=== PATIENT | female | born 1940 | race Caucasian/White ===

== ENCOUNTER 2016-07-11 13:19 | Emergency (ER) | payer MEDICARE, OTHER ==
[2016-07-11 12:49] LABS: BASOPHILS 0.4 %; BASOPHILS ABSOLUTE 0.03 10/3/uL (0.0-0.16); EOSINOPHILS 7.3 %; EOSINOPHILS ABSOLUTE 0.59 10/3/uL (0.0-0.53); ER CBC TAT 0 Hrs 05 Mins; IMMATURE GRANULOCYTES 0.1 %; IMMATURE GRANULOCYTES ABSOLUTE 0.01 10/3/uL (0.0-0.11); LYMPHOCYTES 19.7 %; LYMPHOCYTES ABSOLUTE 1.58 10/3/uL (0.67-4.30); MEAN CORPUS HGB CONC 32.3 g/dL (32.0-36.0); MEAN CORPUSCULAR HEMOGLOB 29.7 pg (26.0-34.0); MEAN CORPUSCULAR VOLUME 91.9 fL (80-100); MEAN PLATELET VOLUME 10.6 fL (9.2-13.0); MONOCYTES 8.3 %; MONOCYTES ABSOLUTE 0.67 10/3/uL (0.21-1.20); NEUTROPHILS 64.2 %; NEUTROPHILS ABSOLUTE 5.15 10/3/uL (2.02-8.40); RBC DISTRIBUTION WIDTH 15.3 % (12.0-16.0)
[2016-07-11 12:50] LABS: HEMATOCRIT 36.2 % (36.0-48.0); HEMOGLOBIN 11.7 g/dL (12.0-16.0); PLATELET COUNT 155 10/3/uL (150-400); RED CELL COUNT 3.94 10/6/uL (4.0-5.6)
[2016-07-11 12:51] LABS: MANUAL DIFF NO %
[2016-07-11 13:06] LABS: A/G RATIO 0.8 (0.7-1.9); BUN (BLOOD UREA NITROGEN) 48 MG/DL (6-23); CALCIUM, SERUM 9.1 MG/DL (8.5-10.4); CHLORIDE, SERUM 104 MMOL/L (96-112); CO2 (CARBON DIOXIDE) 27 MMOL/L (24-34); GLOBULIN 3.7 G/DL (2.5-4.1); POTASSIUM, SERUM 4.4 MMOL/L (3.5-5.3); SGOT(AST) 12 U/L (5-40); SGPT(ALT) 16 U/L (5-65); SODIUM, SERUM 141 MMOL/L (135-148); TOTAL BILIRUBIN 0.4 MG/DL (0-1.2); TOTAL PROTEIN 6.7 G/DL (6.0-8.5)
[2016-07-11 13:07] LABS: ALKALINE PHOSPHATASE 64 U/L (45-117); CREATININE 7.76 MG/DL (0.55-1.02); GFR AFRICAN AMERICAN 5 ML/MIN (>=60); GFR NON AFRICAN AMERICAN 5 ML/MIN (>=60); GLUCOSE, SERUM 111 MG/DL (60-99)
[~2016-07-11 13:19] MED LIST: ACET500CAP PO; ALAVERT10 MG PO; ALLERGY SHOT SQ; APRES50 PO; ARANESP; ARANESP SC; ARANESP25 IV; ASAB PO; ASABAYER PO; BUM2 PO; BUSPAR5 PO; CLARIT10 PO; COREG12 PO; COREG6 PO; DIOVAN HC2; DIOVAN HCT160 MG/25 PO; DIOVAN HCT320 MG/25 PO; DIURETIC PO; FERROUS SULF325 M1 PO; FISH-EPA1000 MG PO; GAS-X80 MG PO; HYZAAR 100/25 T1 TAB PO; IRON COMPLEX150 MG OR; IRON325 MG PO; LEVOTHROID50 MCG PO; LEVOTHYROXIN50 MCG PO; LIPITOR40 PO; MIRALAXPKT PO; NITROSTAT0.4 MG SL; NORV25 PO; NORV5 PO; PCET PO; PROCRIT IV; PROCRIT40 IV; SYSTANE OP; SYSTANE OPH; TUMSROLL PO; UNABLE TO RECALL; VENTOLIN HFA INH; VITAMIN D1000 UNI1 PO; VITAMIN D2000 UNIT PO; VITAMIN D31000 UNIT PO; ZANTAC 150 PO; ZANTAC 75 PO; ZOCOR20 PO; ZOCOR80 MG PO; ZOFRAN4 PO
[2016-07-11 13:53] LABS: TROPONIN I <0.02 NG/ML (<0.05)
[2016-11-11] MEDS ORDERED: CLARIT10 PO (08:35)
[2016-11-11] MEDS ORDERED: ARANESP25 SC (08:35)
[2016-11-11] MEDS ORDERED: COZ50 PO (08:36)
[2016-11-11] MEDS ORDERED: BUM2 PO (14:18)
[2016-11-13] MEDS ORDERED: ZOFRAN ODT4 MG PO ×2 (13:45)
== END 2016-07-11 14:42 | disposition home or self-care (01) ==
LOC: ER 13:19
PROVIDERS: Physician Assistant
DX: J90 Pleural effusion, not elsewhere classified (principal); I25.2 Old myocardial infarction; I12.9 Hypertensive chronic kidney disease with stage 1 through stage 4 chronic kidney disease, or unspecified chronic kidney disease; N18.9 Chronic kidney disease, unspecified; D64.9 Anemia, unspecified; Z88.5 Allergy status to narcotic agent; Z88.8 Allergy status to other drugs, medicaments and biological substances; Z79.82 Long term (current) use of aspirin; Z79.899 Other long term (current) drug therapy
CPT/HCPCS: 71010; 80053; 83880; 84484; 85025; 87040; 93005; 99285

== ENCOUNTER 2016-07-22 08:06 | Observation (INO) | payer MEDICARE, OTHER ==
--- NOTE | ~2016-07-22 | CN ---
Consultation Report [facility] [address] [place]. [address] NAME: CUCA COPE : 39 STATUS : ADM Andrew PAT#: [id number] AGE: 75 ADM/REG DATE : 07/22/16 MR#: [id number] REPORT SERV DATE: 07/23/16 DICTATED BY: TRAVIS MENDEZ DATE: 07/23/16 REPORT STATUS : Draft TRANSCRIBED BY: MODL DATE: 07/23/16 CONSULTATION NOTE DATE OF CONSULTATION: 07/23/2016 CHIEF COMPLAINT: Shortness of breath in a patient with bilateral pleural effusions. HISTORY OF PRESENT ILLNESS: Mrs. Cuca Cope is a very pleasant 75-year-old white female with a past medical history significant for end-stage renal disease, currently on peritoneal dialysis, hypertension, and congestive heart failure, who presents to [facility]'s Emergency Room with complaints of worsening shortness of breath of two or three days duration. Please note that, Ms. Cope was hospitalized as recently as 03/2016 when she was seen for similar complaints. Mrs. Cope is not currently followed by a global category manager. She is not usually require supplemental oxygen. She is on no nebulized medications. She described herself as a never smoker. She describes her exercise tolerance prior to this recent illness as being fairly good, being able to ambulate 50 to 100 yards before experiencing some degree of shortness of breath. She largely denies symptomatology related to obstructive sleep apnea. Mrs. Cope was hospitalized as recently as 03/2016 when she had complaints of worsening shortness of breath. She was seen by Nephrology and Cardiology for these concerns. She did eventually undergo imaging, which demonstrated bilateral pleural effusions. At this time, the left effusion was larger in comparison to the right. A pulmonary nodule in the right side was noted as well. She did eventually undergo a left-sided thoracentesis, which produced 600 mL of fluid. Unfortunately, this was not sent off for diagnostic studies. The patient did eventually improve and continued to do peritoneal dialysis at home. More recently, she began to experience worsening shortness of breath and a dry nonproductive cough and as such was eventually brought to the emergency room at [facility] for further assessment. Upon arrival, she was found to be hypertensive with a systolic blood pressure of 175. Her oxygenation was 93% on room air. Initial blood work revealed a white blood cell count of 9200. Her BNP was elevated at 1840. She did receive diuretics and breathing treatments. She did eventually undergo a CT of the chest, which demonstrated again bilateral pleural effusions, this time with the right greater than left. There is an interval increase of the right middle lobe nodule previously measuring 4.7 mm, now measuring 6 x 9 mm. For the aforementioned reasons, she has been referred to the Pulmonary Service for further assessment. Currently, the patient is on room air with oxygen saturation of 96%. She states that her breathing has improved dramatically. She denies any shortness of breath at rest. She does have a dry, nonproductive cough. She denies any wheezing. She denies any recent chills or fever. She denies a history of childhood asthma. She denies any formal diagnosis of Consultation Report [address] [address] NAME: CUCA COPE : 39 STATUS : ADM Andrew PAT#: [id number] AGE: 75 ADM/REG DATE : 07/22/16 MR#: [id number] REPORT SERV DATE: 07/23/16 DICTATED BY: TRAVIS MENDEZ DATE: 07/23/16 REPORT STATUS : Draft TRANSCRIBED BY: REECE DATE: 07/23/16 chronic bronchitis or emphysema. The patient does have known significant cardiac disease including coronary artery disease, congestive heart failure, hypertension, and dyslipidemia. She currently denies any murmurs, angina, or palpitations. She denies any lower extremity edema. In regard to constitutional symptoms, she currently denies fever, chills, nausea, vomiting, chest pain, abdominal pain, or edema. PAST MEDICAL HISTORY: 1. End-stage renal disease, on peritoneal dialysis secondary to phosphate toxicity. 2. Hypertension. 3. Remote history of CMV. 4. Coronary artery disease with stent placement. 5. Dyslipidemia. 6. Aortic insufficiency. 7. Congestive heart failure with decreased left ventricular ejection fraction. PAST SURGICAL HISTORY: 1. Total abdominal hysterectomy. 2. Cholecystectomy. 3. Back surgery. 4. Laparoscopic abdominal sacrocolpopexy. 5. Suburethral sling. 6. Laparoscopic peritoneal dialysis catheter placement. FAMILY HISTORY: The patient states her sister has alpha-1 deficiency. She states, she has been tested and as well as her family members. SOCIAL HISTORY: The patient is with her currently at bedside. They have three biologic children who are in good health. 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 She denies any known exposures to dust, silica, or asbestos. TOBACCO/ALCOHOL: As previously mentioned, the patient denies any previous smoking history. She denies any recent alcohol or illicit drug use. MEDICATIONS: 1. Albuterol. 2. Amlodipine 2.5 mg. 3. Bumex 2 mg. 4. Carvedilol 12.5 mg. 5. Levothyroxine 50 mcg. 6. Ranitidine 150 mg. ALLERGIES: THE PATIENT HAS KNOWN ALLERGY TO PROMETHAZINE. SHE HAS ADVERSE REACTIONS TO Consultation Report [address] [address] NAME: CUCA COPE : 39 STATUS : ADM Andrew PAT#: [id number] AGE: 75 ADM/REG DATE : 07/22/16 MR#: [id number] REPORT SERV DATE: 07/23/16 DICTATED BY: TRAVIS MENDEZ DATE: 07/23/16 REPORT STATUS : Draft TRANSCRIBED BY: REECE DATE: 07/23/16 CONTRAST MEDIA, NSAIDS, IODINE, MORPHINE, IBUPROFEN. SHE HAS KNOWN ALLERGY TO FLEETS PHOSPHO-SODA WELL, WHICH CAUSED HER PERMANENT KIDNEY DISEASE. REVIEW OF SYSTEMS: Complete review of systems was performed with the pertinent positives and negatives contained within the body of the HPI. PHYSICAL EXAMINATION: VITAL SIGNS: Blood pressure is 109/55, heart rate is 67, T-max is 98.4, respiratory rate is 16, SpO2 is 96% on room air. GENERAL: The patient is a pleasant, well-nourished/well-developed female, who is not currently exhibiting any signs of acute distress. Skin: Skin with appropriate texture and turgor. No rashes, lesions, or ulcers. Nails are clear without cyanosis or clubbing. HEENT: Head: Skull is normocephalic/atraumatic. Facies symmetric. No masses or lesions. Eyes: Sclera anicteric, conjunctiva pink without exudates. Extra ocular movements intact. Pupils are equal, round, reactive to light. Ears: Auricles and tragus without pain to palpation. Hearing is grossly intact. Nose: Bilateral nasal patency. Sinuses without tenderness upon palpation. Throat: The patient has a dental implant appliance in the uppers. Lips, oral mucosa, tongue, palate, and pharynx pink and moist without lesions. Uvula rises equally on phonation. Tongue midline without deviation. NECK: Neck supple. Trachea midline. No cervical lymphadenopathy appreciated. THORAX/LUNGS: Thorax is symmetric with equal chest rise. Diminished breath sounds in the posterior bases. No rales, wheezes, rhonchi CARDIOVASCULAR: Regular rate and rhythm. No murmurs, rubs, or gallops. Anterior chest without thrills, heaves, or lifts. ABDOMEN: Soft. Non-distended, non-tender. Active bowel sounds in all four quadrants. No hepatosplenomegaly noted. PERIPHERAL VASCULAR: No edema. No varicosities, stasis changes, open sores, ulcerations, or phlebitis. 2+ pulses in radial and dorsalis pedis. MUSCULOSKELETAL: Full AROM and PROM in all joints. No evidence of erythema, deformity, or crepitus. NEUROLOGIC: CN II - XII grossly intact. Good muscle bulk and tone bilaterally. Strength 5/5 throughout. PSYCHIATRIC: Patient demonstrates good judgment and insight. Pt is A&O x 3. ACCESSORY DATA: Reveals a creatinine of 7.83, BNP is 2343.2. White blood cell count is 7800, hemoglobin and hematocrit are 10.6 and 32.7. Alpha [address] of the chest reveals bilateral pleural effusions, right greater than left. There is an increasing right middle lobe nodule. IMPRESSION: 1. End-stage renal disease, on peritoneal dialysis. 2. Volume overload. Consultation Report [address] [address] NAME: CUCA COPE : 39 STATUS : ADM Andrew PAT#: [id number] AGE: 75 ADM/REG DATE : 07/22/16 MR#: [id number] REPORT SERV DATE: 07/23/16 DICTATED BY: TRAVIS MENDEZ DATE: 07/23/16 REPORT STATUS : Draft TRANSCRIBED BY: REECE DATE: 07/23/16 3. Bilateral pleural effusions. 4. Increasing right middle lobe pulmonary nodule. PLAN: Currently, the patient is under care of Nephrology Service and is managing her volume overload. Cardiology has been consulted as well and there is a repeat echocardiogram pending. In regard to the patient's bilateral pleural effusions, she is clinically improved in regard to her shortness of breath. We did discuss performing a right-sided thoracentesis as initial studies have never been performed. The patient deferred at this time given her significant improvement in her breathing. We will obtain a followup chest x-ray tomorrow to further evaluate these effusions and ensure that they are in fact getting smaller. In regard to the patient's pulmonary nodule, we discussed followup imaging versus head imaging versus biopsy. At this time, the plan is to re-image her in three months and move forward pending those results. The aforementioned impression and plan has been discussed with Dr. Cronin, who will follow further recommendations. We thank you for this consult and look forward to participating in the care of Mrs. Cope. LORE/MODL Travis Mendez PA-C / [id number] CC: Norah Javier M.D.
--- NOTE | ~2016-07-22 | CN ---
Consultation Report [facility] [address] [place]. [address] NAME: VIJAY COPE : 39 STATUS : ADM Andrew PAT#: [id number] AGE: 75 ADM/REG DATE : 07/22/16 MR#: [id number] REPORT SERV DATE: 07/22/16 DICTATED BY: TIMO PORTILLO DATE: 07/22/16 REPORT STATUS : Draft TRANSCRIBED BY: MODBartolo DATE: 07/22/16 CARDIOVASCULAR CONSULTATION DATE OF CONSULTATION: 07/22/2016 INDICATION: Dyspnea, volume overload. HISTORY OF PRESENT ILLNESS: This is a 75-year-old patient of my partner, Dr. Thomas Beth. She has a longstanding history of coronary artery disease with multiple stents dating back to 2006. She has a history of hypertension, hypercholesterolemia, and end-stage renal disease. In 03/2016, she underwent cardiac catheterization by Dr. Beth, which showed no significant obstructive coronary artery disease. She has mild to moderate aortic insufficiency, which has been longstanding. She had an echocardiogram, which reports an EF of 30%. She underwent initiation of peritoneal dialysis. Over the last several weeks, she has had worsening symptoms of shortness of breath. She is admitted through the emergency room to the Nephrology Service for these symptoms. Chest x-ray shows bilateral pleural effusions. PAST MEDICAL HISTORY: 1. Coronary artery disease, status post stenting as above. 2. Hypertension. 3. Hypercholesterolemia. 4. End-stage renal disease, on hemodialysis. 5. Aortic valve insufficiency. 6. History of left bundle-branch block. SOCIAL HISTORY: She does not smoke or drink alcohol. FAMILY HISTORY: There is no family history of early coronary artery disease. REVIEW OF SYSTEMS: A complete review of systems was obtained, which is negative in detail except as mentioned above in the HPI. ALLERGIES: SHE REPORTS INTOLERANCES TO ALL STATIN MEDICATIONS. SHE IS ALLERGIC TO PROMETHAZINE CAUSING FACE AND LIP SWELLING. MEDICATIONS: Tylenol, albuterol, Norvasc 2.5 mg twice a day, aspirin 81 mg twice a day, Bumex 2 mg p.o. daily, calcium carbonate, Coreg 12.5 mg twice a day, folic acid, Fosrenol, levothyroxine 50 mcg daily, nitroglycerin as needed, omega-3 fatty acid, Zantac, Gas-X. PHYSICAL EXAMINATION: VITAL SIGNS: Blood pressure 160/80, heart rate of 70, respiratory rate of 14. GENERAL: Comfortable in no acute distress. HEENT: Anicteric. No xanthelasma. Lips without cyanosis. Consultation Report [facility] [id number] [place]. [address] NAME: VIJAY COPE : 39 STATUS : ADM Andrew PAT#: [id number] AGE: 75 ADM/REG DATE : 07/22/16 MR#: [id number] REPORT SERV DATE: 07/22/16 DICTATED BY: TIMO PORTILLO DATE: 07/22/16 REPORT STATUS : Draft TRANSCRIBED BY: MODL DATE: 07/22/16 NECK: No JVD. Carotids 2+ and symmetric. No carotid bruits. LUNGS: CTA bilaterally. No wheezes or rhonchi. No accessory muscle use. CHEST: There was dullness to percussion and auscultation at the bases bilaterally. There are mild bibasilar crackles. COR: RRR. Normally placed PMI. Normal S1 and S2. No murmurs, rubs or gallops. ABD: Soft, nontender, nondistended. Normal bowel sounds. No abdominal bruits. EXT: No clubbing, cyanosis or edema 2+ and symmetric distal pulses. SKIN: Warm. Dry. No venous stasis changes. MS: No kyphosis. NEURO/PSYCH: Oriented x3. No anxiety or depression. LABORATORY STUDIES: White count of 9.2, hematocrit of 34. Creatinine of 7.56, potassium of 4.5. BNP of 1840. Troponin of less than 0.02. INR of 1.1. EK-lead EKG shows sinus rhythm at 87 beats per minute. Left bundle-branch block pattern is noted. IMPRESSION: This is a 75-year-old woman with a history of known coronary artery disease, who underwent a recent cardiac catheterization showing no significant stenosis. She has a history of LV dysfunction at least since 03/2016. Certainly, this could be playing a role in her current state of volume overload. I have recommended a repeat echocardiogram. I agree with plans for IV Bumex diuresis. It may be that her peritoneal dialysis regimen needs to be adjusted to remove more fluid. EZIO/REECE Timo Portillo M.D. / [id number] CC: Norah Javier M.D.
--- NOTE | ~2016-07-22 | HP ---
History And Physical [place] [id number] [facility] [place]. [address] NAME: VIJAY COPE : 39 STATUS : ADM Andrew PAT#: [id number] AGE: 75 ADM/REG DATE : 07/22/16 MR#: [id number] REPORT SERV DATE: 07/22/16 DICTATED BY: ROCIO CRUM DATE: 07/22/16 REPORT STATUS : Draft TRANSCRIBED BY: MODL DATE: 07/22/16 DATE OF ADMISSION: 07/22/2016 REASON FOR ADMISSION: End-stage renal disease, peritoneal dialysis, complaining of increasing shortness of breath. HISTORY OF PRESENT ILLNESS: This is a fairly pleasant 75-year-old female patient who reports to [facility] with complaints of shortness of breath and dyspnea worsening over the last 48 to 72 hours. She reports no associated chest pain, fevers, nausea, or vomiting. She is maintained on regular peritoneal dialysis at home and has declined historically any inclination of guide changer to hemodialysis as she was a previous hemodialysis patient and did not feel that she was progressing medically. She reports that over the last 48 to 72 hours she has had increasing dyspnea on exertion and particularly paroxysmal nocturnal dyspnea. She is known to have a cardiac history and was previously seen by Dr. Cobb prior to his relocation from the area. She has also previously been seen by Pulmonary Services by Dr. Shaunna Hernandez for pulmonary testing. She is lying in bed this afternoon. Denies current chest pain. No nausea, vomiting, or diarrhea. PAST MEDICAL HISTORY: Positive for end-stage renal disease with maintenance on peritoneal dialysis, aortic insufficiency, congestive heart failure, coronary artery disease with previous stenting, status post myocardial infarction, previously followed by Dr. Cobb, persistent urinary reflux, hypertension, diverticulosis, degenerative disc disease, and anemia. PAST SURGICAL HISTORY: Cholecystectomy, hysterectomy, and previous back surgery. She has also had a previous stent placed, date is unclear. SOCIAL HISTORY: No ETOH. No illicit drugs. No tobacco. FAMILY HISTORY: Noncontributory and not reviewed during this consultation and admission. ACTIVE ALLERGIES: She lists multiple allergies and includes the following; promethazine, contrast dye, nonsteroidal medications, iodine, morphine ibuprofen as well as Fleet. ACTIVE MEDICATIONS: Tylenol 500 mg daily p.r.n., ProAir HFA two puffs inhaled q.4 hours p.r.n., Norvasc 2.5 mg p.o. b.i.d., ASA 81 mg p.o. daily, Hard Nail 1 caplet daily, Bumex 2 mg p.o. daily, Tums 500 mg p.o. daily p.r.n., carvedilol 12.5 mg p.o. b.i.d., folic acid 800 mcg p.o. daily, Garamycin 1 topical daily, Fosrenol 1000 mg p.o. daily with meals, levothyroxine 50 mcg p.o. daily, Nitrostat 0.4 sublingual p.r.n., fish oil 1200 mg p.o. daily, MiraLAX 17 g p.o. daily, Systane 1 drop OPH b.i.d. p.r.n., Zantac 150 mg p.o. daily, and Gas-X 80 mg daily p.r.n. PHYSICAL EXAMINATION: VITAL SIGNS: Blood pressure 162/82, temperature 97.4, respiratory rate 18, and 93% on 2 L nasal cannula. GENERAL: She is a chronically ill-appearing, awake, alert, and oriented female History And Physical [address] [address] NAME: VIJAY COPE : 39 STATUS : ADM Andrew PAT#: [id number] AGE: 75 ADM/REG DATE : 07/22/16 MR#: [id number] REPORT SERV DATE: 07/22/16 DICTATED BY: ROCIO CRUM DATE: 07/22/16 REPORT STATUS : Draft TRANSCRIBED BY: REECE DATE: 07/22/16 patient in bed during evaluation. HEENT: Normocephalic and atraumatic. Normal ocular movements. No scleral icterus. No conjunctival pallor is appreciated. NECK: Supple without thyromegaly. No JVD, no mass. CHEST: Positive S1 and S2. No rubs or gallops. LUNGS: Diminished, clear to auscultation throughout. Normal expansion and effort bilaterally. GI: Positive bowel sounds in all four quadrants. No appreciable masses or tenderness. : Examination is deferred. EXTREMITIES: Positive pulses in all four extremities. No clubbing, cyanosis, or edema. SKIN: Warm, dry, and intact visualized surfaces. No rash, lesions, or ecchymosis are visualized to cursory visual exam. LABORATORY AND IMAGING DATA: Pertinent laboratories and imaging to this evaluation are as follows. CT of the chest without contrast shows no radiopaque foreign body identified within the pulmonary vessels. Density seen on the chest radiograph appears to correspond to intrafissural fluid. Enlarging nodule in the posterior right middle lobe under the minor fissure measuring 6 x 9 mm and measuring approximately 4 x 7 mm on 04/10/2016 with suggestions for followup CT in 3 months to further evaluate. Patchy ground-glass densities in the lungs are noted with interlobular septal thickening involving the lower lobes with moderate bilateral pleural effusions compatible with congestive changes and pulmonary edema. Stable cardiomegaly with heavy 3-vessel disease, coronary artery calcification, previous coronary artery stenting. There is only a trace of pericardial fluid. Perihepatic ascites with a single air bubble adjacent to the left hepatic lobe, likely related to the peritoneal dialysis. Mild atrophic-appearing left kidney with a 4 mm nonobstructing nephrolithiasis or vascular calcification. She is status post cholecystectomy. B-natriuretic peptide 1840.6. Sodium 138, potassium 4.5, chloride 102, CO2 of 21, BUN 50, creatinine 7.56, reflected GFR 5 mL/minute, glucose of 104 calcium 9.1, magnesium 2.2. Troponin less than 0.02. WBC 9.2, RBC 3.85, hemoglobin 11.4, hematocrit 34.1, and platelets 188. Blood cultures are currently pending with no growth at four days. on 07/16/2016. IMPRESSION AND PLAN: End-stage renal disease, maintained on chronic peritoneal dialysis at home, now presenting to [facility] with complaint of dyspnea, fatigue, and shortness of breath with nocturnal dyspnea as well noted. The patient has historically and continues to decline moving toward hemodialysis in efforts to improve fluid removal. She is slated to see [facility] later this week as she has previously followed with another pediatric physician who has relocated from this area. Considering her emerging congestive heart failure pattern, we will repeat her echocardiogram, increase her p.o. diuresis, ask Cardiology to evaluate her while inpatient, and continue her current peritoneal dialysis. With her findings on her chest CT, it is questionable that she may need a pulmonary evaluation and consideration for possible thoracentesis and that the seed of her shortness of breath may be more relational to her chronic findings on her chest CT rather than acute findings of a History And Physical [address] [address] NAME: VIJAY COPE : 39 STATUS : ADM Andrew PAT#: [id number] AGE: 75 ADM/REG DATE : 07/22/16 MR#: [id number] REPORT SERV DATE: 07/22/16 DICTATED BY: ROCIO CRUM DATE: 07/22/16 REPORT STATUS : Draft TRANSCRIBED BY: REECE DATE: 07/22/16 congestive heart failure pattern. Current efforts will be made to maximize her volume stability with the assistance of suggestions and clinical input from Cardiology. Maintain her peritoneal dialysis as per her usual prescription. Renal diet. Strict I's and O's, daily weights, and fluid/electrolyte protocol. Modify treatment plan based on clinical presentation, patient's laboratory results, further consultation with Renal attending. We will also trend her troponins, although they are stable currently. We appreciate Cardiology's input and assistance in evaluation in care of this patient. DICTATED BY: Finn Bryant NP JR/REECE Rocio Crum M.D. / [id number] CC: Norah Javier M.D.
[2016-07-22 06:39] LABS: BASOPHILS 0.3 %; BASOPHILS ABSOLUTE 0.03 10/3/uL (0.0-0.16); EOSINOPHILS ABSOLUTE 0.55 10/3/uL (0.0-0.53); HEMATOCRIT 34.1 % (36.0-48.0); HEMOGLOBIN 11.4 g/dL (12.0-16.0); IMMATURE GRANULOCYTES 0.2 %; IMMATURE GRANULOCYTES ABSOLUTE 0.02 10/3/uL (0.0-0.11); LYMPHOCYTES 17.2 %; LYMPHOCYTES ABSOLUTE 1.58 10/3/uL (0.67-4.30); MEAN CORPUS HGB CONC 33.4 g/dL (32.0-36.0); MEAN CORPUSCULAR HEMOGLOB 29.6 pg (26.0-34.0); MEAN PLATELET VOLUME 10.4 fL (9.2-13.0); MONOCYTES 8.4 %; MONOCYTES ABSOLUTE 0.77 10/3/uL (0.21-1.20); NEUTROPHILS 67.9 %; NEUTROPHILS ABSOLUTE 6.21 10/3/uL (2.02-8.40); PLATELET COUNT 188 10/3/uL (150-400); RBC DISTRIBUTION WIDTH 15.3 % (12.0-16.0); RED CELL COUNT 3.85 10/6/uL (4.0-5.6); WHITE BLOOD CELLS 9.2 10/3/uL (4.5-10.5)
[2016-07-22 06:40] LABS: MANUAL DIFF NO %; MEAN CORPUSCULAR VOLUME 88.6 fL (80-100)
[2016-07-22 06:48] LABS: INTERNATIONAL NORMAL RATI 1.1 UNITS (-); PARTIAL THROMBO TIME 28.4 SEC (22.5-37.2); PROTIME (NOT ORD) 14.4 SEC (12.0-14.5)
[2016-07-22 06:55] LABS: BUN (BLOOD UREA NITROGEN) 50 MG/DL (6-23); CALCIUM, SERUM 9.1 MG/DL (8.5-10.4); CHEST PAIN PROFILE TAT 0 Hrs 20 Mins; CHLORIDE, SERUM 102 MMOL/L (96-112); CO2 (CARBON DIOXIDE) 21 MMOL/L (24-34); CREATININE 7.56 MG/DL (0.55-1.02); GFR AFRICAN AMERICAN 5 ML/MIN (>=60); GFR NON AFRICAN AMERICAN 5 ML/MIN (>=60); GLUCOSE, SERUM 104 MG/DL (60-99); POTASSIUM, SERUM 4.5 MMOL/L (3.5-5.3); SODIUM, SERUM 138 MMOL/L (135-148); TROPONIN I <0.02 NG/ML (<0.05)
[2016-07-22] MEDS ORDERED: PROAIR HFA INH (10:07)
[2016-07-22] MEDS ORDERED: FOSRENOL1000 MG PO (10:09)
[2016-07-22] MEDS ORDERED: FOLIC ACID800 MCG PO (10:12)
[2016-07-22] MEDS ORDERED: HARD NAILS PO (10:12)
[2016-07-22] MEDS ORDERED: FISH OIL1200 MG PO (10:12)
[2016-07-22] MEDS ORDERED: GARACR15 TOP (10:14)
[2016-07-23 06:20] LABS: BASOPHILS 0.3 %; BASOPHILS ABSOLUTE 0.02 10/3/uL (0.0-0.16); EOSINOPHILS 5.3 %; EOSINOPHILS ABSOLUTE 0.41 10/3/uL (0.0-0.53); HEMATOCRIT 32.7 % (36.0-48.0); HEMOGLOBIN 10.6 g/dL (12.0-16.0); IMMATURE GRANULOCYTES 0.1 %; IMMATURE GRANULOCYTES ABSOLUTE 0.01 10/3/uL (0.0-0.11); LYMPHOCYTES 16.8 %; LYMPHOCYTES ABSOLUTE 1.31 10/3/uL (0.67-4.30); MEAN CORPUS HGB CONC 32.4 g/dL (32.0-36.0); MEAN CORPUSCULAR HEMOGLOB 29.6 pg (26.0-34.0); MEAN PLATELET VOLUME 10.5 fL (9.2-13.0); MONOCYTES 8.7 %; MONOCYTES ABSOLUTE 0.68 10/3/uL (0.21-1.20); NEUTROPHILS 68.8 %; NEUTROPHILS ABSOLUTE 5.36 10/3/uL (2.02-8.40); PLATELET COUNT 187 10/3/uL (150-400); RBC DISTRIBUTION WIDTH 15.2 % (12.0-16.0); RED CELL COUNT 3.58 10/6/uL (4.0-5.6); WHITE BLOOD CELLS 7.8 10/3/uL (4.5-10.5)
[2016-07-23 06:30] LABS: MANUAL DIFF NO %; MEAN CORPUSCULAR VOLUME 91.3 fL (80-100)
[2016-07-23 06:34] LABS: ALBUMIN 2.6 G/DL (3.5-5.0); BUN (BLOOD UREA NITROGEN) 49 MG/DL (6-23); CALCIUM, SERUM 9.8 MG/DL (8.5-10.4); CHLORIDE, SERUM 104 MMOL/L (96-112); CO2 (CARBON DIOXIDE) 24 MMOL/L (24-34); CREATININE 7.83 MG/DL (0.55-1.02); GFR AFRICAN AMERICAN 5 ML/MIN (>=60); GFR NON AFRICAN AMERICAN 5 ML/MIN (>=60); GLUCOSE, SERUM 115 MG/DL (60-99); SODIUM, SERUM 140 MMOL/L (135-148)
[2016-11-11] MEDS ORDERED: CLARIT10 PO (08:35)
[2016-11-11] MEDS ORDERED: ARANESP25 SC (08:35)
[2016-11-11] MEDS ORDERED: COZ50 PO (08:36)
[2016-11-11] MEDS ORDERED: BUM2 PO (14:18)
[2016-11-13] MEDS ORDERED: ZOFRAN ODT4 MG PO ×2 (13:45)
== END 2016-07-23 17:10 | disposition home or self-care (01) ==
LOC: ER 08:06 → 2SO 12:27
PROVIDERS: Registered Nurse; Specialist
DX: I13.2 Hypertensive heart and chronic kidney disease with heart failure and with stage 5 chronic kidney disease, or end stage renal disease (principal); I50.9 Heart failure, unspecified; I35.1 Nonrheumatic aortic (valve) insufficiency; I25.10 Atherosclerotic heart disease of native coronary artery without angina pectoris; I25.2 Old myocardial infarction; N18.6 End stage renal disease; N13.70 Vesicoureteral-reflux, unspecified; E87.70 Fluid overload, unspecified; E78.5 Hyperlipidemia, unspecified; K57.30 Diverticulosis of large intestine without perforation or abscess without bleeding; D63.1 Anemia in chronic kidney disease; Z99.2 Dependence on renal dialysis; Z95.5 Presence of coronary angioplasty implant and graft; Z90.49 Acquired absence of other specified parts of digestive tract; Z90.710 Acquired absence of both cervix and uterus; Z98.890 Other specified postprocedural states; Z88.5 Allergy status to narcotic agent; Z88.6 Allergy status to analgesic agent; Z88.8 Allergy status to other drugs, medicaments and biological substances; Z91.041 Radiographic dye allergy status; Z91.018 Allergy to other foods; Z79.82 Long term (current) use of aspirin; Z79.2 Long term (current) use of antibiotics; Z79.899 Other long term (current) drug therapy
CPT/HCPCS: 71010; 71250; 80048; 80069; 83735; 83880; 84484; 85025; 85610; 85730; 93005; 94640; 96374; 99285; A9270-GY; C8929; G0378; J2405; Q9957